=== PATIENT | male | born 2000 | race Caucasian/White ===

== ENCOUNTER 2023-11-06 06:00 | Outpatient (CLI) | payer OTHER, SELFPAY | END 2023-11-06 06:01 | disposition home or self-care (01) | LOC: RAD 12-06 09:50 | PROVIDERS: PCP Family Medicine; Visit Provider Clinical Nurse Specialist Adult Health | DX: R10.31 Right lower quadrant pain (principal); R19.7 Diarrhea, unspecified | CPT/HCPCS: 80053; 85025; 85651; 86140 ==